=== PATIENT | female | born 1960 | race African-American/Black ===

== ENCOUNTER 2017-09-02 14:04 | Emergency (ER) | payer MEDICARE, MEDICAID ==
[~2017-09-02] VITALS: Ht 175.3 cm; Wt 101.0 kg
[2017-09-02 14:45] LABS: BASOPHILS % 1.7 % (0.0-2.0); EOSINOPHILS % 1.4 % (0.0-5.0); HEMATOCRIT. 39.5 % (36.0-48.0); HEMOGLOBIN. 13.2 g/dL (12.0-16.0); LYMPHOCYTES % 40.1 % (20.0-50.0); MEAN CORPUSCULAR HEMOGLOBIN 29.9 pg (28.0-32.0); MEAN CORPUSCULAR VOLUME 89.7 fL (81.0-99.0); MEAN PLATELET VOLUME 7.6 fl (7.4-10.4); MONOCYTES % 10.9 % (2.0-8.0); NEUTROPHILS % 45.9 % (40.0-76.0); PLATELET 303 x1000/uL (130-400); RED BLOOD CELL COUNT 4.41 mill/uL (4.2-5.4); RED CELL DISTRIBUTION WIDTH 13.4 % (11.6-14.6)
[2017-09-02 14:48] LABS: CHLORIDE 104 mEq/L (98-107)
[2017-09-02 14:49] LABS: INR 1.1; PROTHROMBIN TIME 11.4 sec (9.4-11.6)
[2017-09-02 17:48] VITALS: BP 131/55
== END 2017-09-02 17:52 | disposition home or self-care (01) ==
LOC: ER 15:50
DX: B00.9 Herpesviral infection, unspecified (principal); K12.1 Other forms of stomatitis; R03.0 Elevated blood-pressure reading, without diagnosis of hypertension
CPT/HCPCS: 36415; 80053; 85025; 85610; 99284